=== PATIENT | female | born 1960 | race Caucasian/White ===

== ENCOUNTER 2017-04-26 10:11 | Outpatient (CLI) | payer OTHER ==
--- NOTE | 2017-04-26 13:38 | RAD ---
PA AND LATERAL VIEWS OF CHEST: Date: 04/26/17 HISTORY: Preoperative evaluation. FINDINGS: The heart size is borderline. The lungs are well expanded without focal areas of consolidation, pneu mothorax, or pleural effusions. There are mild degenerative changes in the spine. IMPRESSION: No radiographic evidence of acute cardiopulmonary process. POS: [facility]
[2017-04-26 13:53] LABS: Hematocrit 38.7 % (36.0-47.0); Mean Platelet Volume 7.5 fL (7.4-10.4); Red Blood Cell (RBC) Count 4.09 mill/uL (4.20-5.40); White Blood Cell (WBC) Count 5.5 thou/uL (4.8-10.8)
[2017-04-26 13:57] LABS: PTT 45.2 SEC (22.9-36.1); Prothrombin Time 14.3 SEC (12.0-14.7)
[2017-04-26 14:19] LABS: ALT (SGPT) 15 U/L (8-55); AST (SGOT) 14 U/L (5-34); Alkaline Phosphatase 83 U/L (40-150); Anion Gap 13 mmol/L (10-20); BUN (Urea Nitrogen) 18 mg/dL (9.8-20.1); Bilirubin, Total 0.4 mg/dL (0.2-1.2); Calc. Creatinine Clearance 0 mL/min (70-130); Calcium 9.1 mg/dL (7.8-10.44); Carbon Dioxide 23 mmol/L (22-29); Chloride 108 mmol/L (98-107); Estimated GFR-MDRD 52; Globulin 2.5 g/dL (2.4-3.5); Protein, Total 6.7 g/dL (6.0-8.3)
--- NOTE | 2017-04-28 09:05 | EKG ---
Test Reason : PREOP Blood Pressure : / mmHG Vent. Rate : 059 BPM Atrial Rate : 061 BPM P-R Int : 000 ms QRS Dur : 066 ms QT Int : 446 ms P-R-T Axes : 000 054 045 degrees QTc Int : 441 ms Junctional rhythm Abnormal ECG When compared with ECG of 23-MAY-2013 03:56, Junctional rhythm has replaced Sinus rhythm Confirmed by CANDIS IRIZARRY ([id number]) on 04/28/2017 9:04:50 AM Referred By: JUAN C Confirmed By:CANDIS IRIZARRY
== END 2017-04-26 10:12 | disposition home or self-care (01) ==
LOC: LABBT 10:11
PROVIDERS: ATTEND Internal Medicine
DX: Z01.818 Encounter for other preprocedural examination (principal); R93.1 Abnormal findings on diagnostic imaging of heart and coronary circulation
CPT/HCPCS: 71020; 80053; 85027; 85610; 85730; 93005; 93010

== ENCOUNTER 2017-04-29 09:26 | Day surgery (SDC) | payer OTHER ==
[2017-04-26 10:49] VITALS: BMI 29.2
[2017-04-29] MEDS ORDERED: diphenhydrAMINE HCl 25 MG CAP ONE (10:23)
[2017-04-29] MEDS ORDERED: Diazepam 5 MG TAB ONE (10:23)
[2017-04-29] MEDS ORDERED: Heparin 10,000 UNITS/1 ML VIAL ONE (10:41)
[2017-04-29] MEDS ORDERED: Nitroglycerin 100MG/250ML BOT 250 ML ONE (10:41)
[2017-04-29] MEDS ORDERED: Midazolam HCl 2 mg/2 ml Vial ONE (11:05)
[2017-04-29] MEDS ORDERED: Fentanyl 100 MCG/2 ML VIAL ONE (11:05)
== END 2017-04-29 17:02 | disposition home or self-care (01) ==
LOC: CCL 09:26
PROVIDERS: ATTEND Internal Medicine
DX: R94.39 Abnormal result of other cardiovascular function study (principal); I10 Essential (primary) hypertension; K21.9 Gastro-esophageal reflux disease without esophagitis; F17.210 Nicotine dependence, cigarettes, uncomplicated; Z88.0 Allergy status to penicillin; Z88.2 Allergy status to sulfonamides; Z88.1 Allergy status to other antibiotic agents; Z91.040 Latex allergy status; Z90.710 Acquired absence of both cervix and uterus; Z90.722 Acquired absence of ovaries, bilateral; Z98.890 Other specified postprocedural states
CPT/HCPCS: 93458; 93798; 99152; C1769; J1644; J2250; J3010

== ENCOUNTER 2021-11-05 10:03 | Observation (INO) | payer BC ==
[2021-11-05] MEDS ORDERED: Lorazepam 1 MG TAB ONE (10:31)
[2021-11-05 10:37] LABS: #Eosinphils 0.1 thou/uL (0.0-0.7); #Lymphocytes 1.6 thou/uL (1.20-3.40); #Monocytes 0.5 thou/uL (0.11-0.59); %Basophils 0.6 % (0.0-1.0); %Eosinophils 1.7 % (0.0-10.0); %Lymphocytes 22.4 % (21.0-51.0); %Monocytes 6.3 % (0.0-10.0); Hemoglobin 14.4 g/dL (12.0-16.0); Mean Corpuscular HGB CONC 31.7 g/dL (32.0-36.0); Mean Corpuscular Hemoglobin 30.7 pg (27.0-31.0); Mean Corpuscular Volume 96.9 fL (78.0-98.0); Mean Platelet Volume 7.1 fL (7.4-10.4); Platelet Count 211 thou/uL (130-400); RBC Distribution Width 11.9 % (11.5-14.5); Red Blood Cell (RBC) Count 4.69 mill/uL (4.20-5.40); White Blood Cell (WBC) Count 7.2 thou/uL (4.8-10.8)
[2021-11-05 10:47] LABS: PTT 24.5 sec (22.9-36.1)
[2021-11-05 10:58] LABS: ALT (SGPT) 32 U/L (8-55); AST (SGOT) 24 U/L (5-34); Albumin 4.2 g/dL (3.4-4.8); Alkaline Phosphatase 119 U/L (40-110); Anion Gap 13 mmol/L (10-20); BUN (Urea Nitrogen) 13 mg/dL (9.8-20.1); Bilirubin, Total 0.5 mg/dL (0.2-1.2); Calc. Creatinine Clearance 0 mL/min (70-130); Calcium 9.2 mg/dL (7.8-10.44); Carbon Dioxide 22 mmol/L (23-31); Chloride 108 mmol/L (98-107); Globulin 2.8 g/dL (2.4-3.5); Glucose 115 mg/dL (80-115); Sodium 139 mmol/L (136-145)
[2021-11-05] MEDS ORDERED: Aspirin 325 MG TAB ONE (11:21)
[2021-11-05] MEDS ORDERED: hydrALAZINE 20 MG/ML VIAL SLOW IVP PRN (16:55)
[2021-11-05] MEDS ORDERED: Ondansetron PF 4 MG/2 ML Vial IVP PRN (16:55)
[2021-11-05] MEDS ORDERED: Acetaminophen 650 MG Suppository PR PRN (16:55)
[2021-11-05] MEDS ORDERED: Ondansetron ODT 4 MG TAB PO PRN (16:55)
[2021-11-05] MEDS: Atorvastatin Calcium 40 MG TAB PO SCH (21:16)
[2021-11-05 23:07] VITALS: BMI 32.8
[2021-11-06 05:03] LABS: #Eosinphils 0.1 thou/uL (0.0-0.7); #Lymphocytes 1.6 thou/uL (1.20-3.40); #Monocytes 0.5 thou/uL (0.11-0.59); #Neutrophils 3.9 thou/uL (1.40-6.50); %Basophils 0.3 % (0.0-1.0); %Eosinophils 2.4 % (0.0-10.0); %Lymphocytes 25.8 % (21.0-51.0); %Monocytes 7.6 % (0.0-10.0); %Neutrophils 63.9 % (42.0-75.0); Hemoglobin 13.1 g/dL (12.0-16.0); Mean Corpuscular HGB CONC 32.4 g/dL (32.0-36.0); Mean Corpuscular Hemoglobin 31.6 pg (27.0-31.0); Mean Corpuscular Volume 97.4 fL (78.0-98.0); Mean Platelet Volume 7.3 fL (7.4-10.4); Platelet Count 180 thou/uL (130-400); RBC Distribution Width 11.8 % (11.5-14.5); Red Blood Cell (RBC) Count 4.14 mill/uL (4.20-5.40); White Blood Cell (WBC) Count 6.1 thou/uL (4.8-10.8)
[2021-11-06 05:29] LABS: Anion Gap 11 mmol/L (10-20); BUN (Urea Nitrogen) 16 mg/dL (9.8-20.1); Calc. Creatinine Clearance 74 mL/min (70-130); Calcium 8.6 mg/dL (7.8-10.44); Carbon Dioxide 24 mmol/L (23-31); Cardiac Risk 4.8 (Less than 4.5); Chloride 108 mmol/L (98-107); Cholesterol 158 mg/dl (< 200 Desired); Glucose 103 mg/dL (80-115); HDL Cholesterol 33 mg/dL (>60 Neg Risk); Potassium 3.9 mmol/L (3.5-5.1); Sodium 139 mmol/L (136-145)
[2021-11-06 06:16] LABS: LDL Cholesterol, Calculated 101 mg/dL; Triglycerides 133 mg/dL (Less than 150)
[2021-11-06] MEDS: Aspirin 81 mg Enteric Coated Tablet PO SCH (09:10)
[2021-11-06] MEDS: Acetaminophen 325 MG TAB PO PRN ×2 (12:29→20:57)
[2021-11-06] MEDS: Atorvastatin Calcium 40 MG TAB PO SCH (20:58)
[2021-11-07 05:39] LABS: #Eosinphils 0.2 thou/uL (0.0-0.7); #Lymphocytes 1.7 thou/uL (1.20-3.40); #Monocytes 0.4 thou/uL (0.11-0.59); #Neutrophils 2.4 thou/uL (1.40-6.50); %Basophils 0.7 % (0.0-1.0); %Eosinophils 3.8 % (0.0-10.0); %Lymphocytes 36.2 % (21.0-51.0); %Monocytes 8.6 % (0.0-10.0); %Neutrophils 50.7 % (42.0-75.0); Hemoglobin 13.7 g/dL (12.0-16.0); Mean Corpuscular HGB CONC 33.5 g/dL (32.0-36.0); Mean Corpuscular Hemoglobin 32.4 pg (27.0-31.0); Mean Corpuscular Volume 96.7 fL (78.0-98.0); Mean Platelet Volume 7.3 fL (7.4-10.4); Platelet Count 162 thou/uL (130-400); RBC Distribution Width 11.7 % (11.5-14.5); Red Blood Cell (RBC) Count 4.24 mill/uL (4.20-5.40); White Blood Cell (WBC) Count 4.6 thou/uL (4.8-10.8)
[2021-11-07 05:49] LABS: Anion Gap 15 mmol/L (10-20); BUN (Urea Nitrogen) 13 mg/dL (9.8-20.1); Calc. Creatinine Clearance 89 mL/min (70-130); Calcium 8.5 mg/dL (7.8-10.44); Carbon Dioxide 23 mmol/L (23-31); Chloride 106 mmol/L (98-107); Glucose 96 mg/dL (80-115); Potassium 3.6 mmol/L (3.5-5.1); Sodium 140 mmol/L (136-145)
[2021-11-07 08:19] VITALS: BP 147/76; TEMP 98.1
[2021-11-07] MEDS ORDERED: Propranolol 40 MG TAB PO SCH (09:00)
[2021-11-07] MEDS ORDERED: Lisinopril 20 MG TAB PO SCH (09:00)
[2021-11-07] MEDS ORDERED: Amlodipine 5 MG TAB PO SCH (09:00)
[2021-11-07] MEDS: Aspirin 81 mg Enteric Coated Tablet PO SCH (09:07)
== END 2021-11-07 11:00 | disposition home or self-care (01) ==
LOC: ERS 10:03 → ERHOLD 11:41 → NEURO 18:45
PROVIDERS: ADMIT Hospitalist; ATTEND Internal Medicine
DX: G45.9 Transient cerebral ischemic attack, unspecified (principal); I10 Essential (primary) hypertension; K21.9 Gastro-esophageal reflux disease without esophagitis; E78.5 Hyperlipidemia, unspecified; F17.290 Nicotine dependence, other tobacco product, uncomplicated; R00.1 Bradycardia, unspecified; Z86.73 Personal history of transient ischemic attack (TIA), and cerebral infarction without residual deficits; Z79.899 Other long term (current) drug therapy; Z88.2 Allergy status to sulfonamides; Z91.040 Latex allergy status; Z95.0 Presence of cardiac pacemaker
CPT/HCPCS: 36415; 70450; 71045; 80048; 80053; 80061; 84484; 85025; 85610; 85730; 93005; 93880; 94760; G0378